=== PATIENT | female | born 2000 | race Caucasian/White ===

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

== ENCOUNTER → 2021-01-18 13:29 | Outpatient (CLI) | payer OTHER, SELFPAY ==
--- NOTE | 2021-01-18 13:36 | US_ITS ---
PROCEDURE: US TRANSVAGINAL CLINICAL INDICATION: POSITIVE PREG TEST,SPOTTING COMPARISON: No exams were available for comparison FINDINGS: UTERUS: 5cm x 4cmx 3cm with a combined endometrial thickness of 9.5mm LEFT OVARY: [id number] with a volume of 28ml. RIGHT OVARY: [id number] with a volume of 17.6ml. The uterus is retroverted. Endometrium is upper normal at 10 mm. No intrauterine gestational sac is apparent. There is bilateral ovarian blood flow with small follicles bilaterally. The ovaries are mildly prominent. No cul-de-sac fluid IMPRESSION: No intrauterine gestational sac apparent. The uterus is retroverted with endometrial thickness upper limits normal. Mildly enlarged ovaries with multiple small follicles Dictated by: Aly Falk MD 01/18/2021 18:07 Aly Falk MD in OV 01/18/2021 18:07
== END ==
PROVIDERS: PCP Family Medicine; Visit Provider Nurse Practitioner Family
DX: Z32.01 Encounter for pregnancy test, result positive (principal); O26.851 Spotting complicating pregnancy, first trimester
CPT/HCPCS: 76830

== ENCOUNTER 2021-09-29 17:08 | Emergency (ER) | payer OTHER, SELFPAY ==
[2021-09-29 17:09] VITALS: BP 141/93; PULSE 91; RESP 19; TEMP 37; O2SAT 96; BMI 44.2
--- NOTE | 2021-09-29 18:08 | HMH.EDUTC ---
[facility] [place] Disposition Clinical Impression: Exposure to COVID-19 virus Disposition: Home, Self-Care Condition on Discharge: Good Instructions: DI for COVID-19 (Suspected or Confirmed ) Additional Instructions: covid swab was sent to lab, call tomorrow for results. self isolate until test results are known to be negative No sign of a bacterial infection. Likely viral. Viruses can take 7-14 days to run their course. Nasal saline and bulb syringe or nose Ilene to remove nasal drainage to help with nasal congestion. Hard to eat, drink, sleep with nasal congestion so important to keep this cleaned out. Monitor temp. Tylenol or Motrin as needed for pain or fever Encourage fluids, water, Gatorade, Powerade, Pedialyte if infant/toddler/child Warm salt water gargles Warm fluids Sore throat lozenges Sleep elevated Humidifier/vaporizer Follow-up immediately for new or worsening symptoms or no noticeable improvement over the next 48-72 hours. Referrals: Abbi Pritchard MD [Primary Care Provider] - Time of Disposition: 18:12 Medical Decision Making - Bret Inquiry Pt receiving controlled substance: No Orders (Tests/Meds): ORDERS Category Date Time Status Covid-19 Nasal PCR ([facility]) Routine Lab 09/29/21 17:40 Received [facility] [place] HPI - General Chief complaint: Urgent [facility] Center Stated complaint: covid test Time Seen by Provider: 09/29/21 18:08 Mode of Arrival: Ambulatory Source of Information: Patient Limitations: No Limitations - History of Present Illness Provider Complaint: 20 yr old female presnets for covid test, pt states cough and chest pain with coughing. positive exposer - Related Data Home Medications Medication Instructions Recorded Confirmed Ergocalciferol (Vitamin D2) 400 unit PO DAILY 11/18/17 11/04/18 [Vitamin D] Folic Acid [Folic Acid 1mg tablet] 1 mg PO DAILY 11/18/17 11/04/18 Ibuprofen [Ibuprofen 600mg Tab] 600 mg PO TID PRN 11/18/17 11/04/18 Loratadine [Allergy Relief] 10 mg PO DAILY 11/18/17 11/04/18 Montelukast Sodium [Montelukast 10 mg PO DAILY 11/18/17 11/04/18 10mg Tab] Omeprazole [Omeprazole 20mg 20 mg PO DAILY 11/18/17 11/04/18 Capsule] levETIRAcetam [Keppra 500mg tablet] 500 mg PO TID 11/18/17 11/04/18 Previous Rx's Medication Instructions Recorded Olopatadine HCl [Pataday] 1 drp OP DAILY #1 bottle 11/18/17 Allergies Allergy/AdvReac Type Severity Reaction Status Date / Time Penicillins [PENICILLINS] Allergy Unknown Verified 11/04/18 16:[address] [facility] History - Hepatitis A Screen Attestation statement:: This patient has been screened for Hepatitis A risk factors. I have reviewed the patient's past medical history: Yes Medical History: Reports:: Gastroesophageal Reflux Disease(GERD) Denies:: Diabetes Mellitus Type 1, Diabetes Mellitus Type 2, Internal Pacemaker Other Surgeries: Yes: No Previous Surgery. No: Pacemaker - Social History Smoking Status: Never smoker Alcohol Intake: never Substance Use Type: denies use Occupational Status: student Housing: house Household Members: family Family Hx:: Diabetes, Cancer ROS Obtained: Yes Systems reviewed as appropriate & no additional complaints - Constitutional Constitutional: Reports system reviewed and no additional complaints, except as docu, Denies chills, Denies fever(s) - Eyes Eyes: Reports system reviewed and no additional complaints, except as docu, Denies blurry vision - ENT Ears, Nose, Mouth, and Throat: Reports system reviewed and no additional complaints, except as docu, Denies sore throat - Cardiovascular Cardiovascular: Reports system reviewed and no additional complaints, except as docu, Denies chest pain - Respiratory Respiratory: Reports system reviewed and no additional complaints, except as docu, Reports cough - Gastrointestinal Gastrointestingal: Reports: system reviewed and no additional complaints, except as docu. Denies: abdominal pain - Musculoskeletal Musculoskeletal: Repor
[2021-09-29 18:29] VITALS: BP 141/93; PULSE 91; RESP 19; TEMP 37; O2SAT 96
== END 2021-09-29 18:32 | disposition home or self-care (01) ==
PROVIDERS: Emergency Provider Nurse Practitioner Family; PCP Family Medicine
DX: U07.1 COVID-19 (principal)
CPT/HCPCS: 99202; C9803; G0463; U0003; U0005

== ENCOUNTER → 2022-12-13 15:19 | Outpatient (CLI) | payer OTHER, SELFPAY ==
[2022-12-13 15:27] LABS: Microscopic, Urine URINE MICROSCOPIC (MICROSCOPIC)
[2022-12-13 16:14] LABS: Appearance,Urine CLEAR (Clear); Bilirubin,Urine Negative (Negative); Blood, Urine Negative (Negative); Color,Urine YELLOW (Yellow); Glucose,Urine (UA) Negative (Negative); Ketones,Urine Negative (Negative); Leukocyte Esterase,Urine 1+ (Negative); Nitrate,Urine Negative (Negative); Protein,Urine Negative (Negative); Specific Gravity, Urine >= 1.030 (1.005-1.030); Urobilinogen,Urine 0.2 EU/dl (0.2)
[2022-12-13 16:58] LABS: Bacteria,Urine Trace /lpf
[2022-12-15 18:24] LABS: HIV Screen 4th Generation wRfx Non Reactive (Non Reactive); Rapid Plasma Reagin Ab Titer Non Reactive (NonRea<1:1)
[2022-12-17 22:13] LABS: Neisseria gonorrhoeae, NAA Negative (Negative)
== END ==
PROVIDERS: PCP Family Medicine; Visit Provider Nurse Practitioner Family
DX: Z20.2 Contact with and (suspected) exposure to infections with a predominantly sexual mode of transmission (principal); Z11.4 Encounter for screening for human immunodeficiency virus [HIV]
CPT/HCPCS: 36415; 81001; 86593; 86703; 87086; 87491; 87591; G0432

== ENCOUNTER → 2023-01-06 12:54 | Outpatient (CLI) | payer OTHER, SELFPAY ==
[2023-01-07 21:08] LABS: Neisseria gonorrhoeae, NAA Negative (Negative)
== END ==
PROVIDERS: PCP Nurse Practitioner Family; Visit Provider Nurse Practitioner Family
DX: Z87.440 Personal history of urinary (tract) infections (principal); B37.31 Acute candidiasis of vulva and vagina; N94.19 Other specified dyspareunia
CPT/HCPCS: 87086; 87491; 87591

== ENCOUNTER 2023-05-05 01:08 | Emergency (ER) | payer OTHER, SELFPAY ==
[2023-05-05 01:23] VITALS: BP 154/95; PULSE 85; RESP 15; TEMP 36.8; O2SAT 98; BMI 36.8
[2023-05-05 01:37] LABS: Chloride 105 mmol/L (98-107); Potassium 4.1 mmoL/L (3.5-5.1); Sodium 139 mmol/L (136-145)
[2023-05-05 01:40] LABS: Alanine Aminotransferase 24 U/L (12-78); Albumin Level 4.6 g/dl (3.5-5.0); Alkaline Phosphatase 102 U/L (38-126); Anion Gap 15.1 mEq/L (5-15); Aspartate Amino Transferase 30 U/L (14-36); Bilirubin,Total 0.4 mg/dl (0.2-1.3); Blood Urea Nitrogen 16 mg/dl (7-17); Carbon Dioxide 23 mmol/L (22.0-30.0); Creatinine Clearance Estimated 184 mL/min (50-200); Estimated Glomerular Filt Rate 89 ml/min (>60); GFR (African American) 108 ML/MIN (>60); Globulin 4.6 g/dL (1.3-3.2); HCG Qualitative, Serum Negative (Negative); Total Protein,Serum 9.2 g/dl (6.3-8.2)
[2023-05-05 01:41] LABS: Basophils # 0.1 K/mm3 (0-0.2); Basophils % 0.6 % (0.1-2.0); Calcium 10.2 mg/dl (8.4-10.2); Eosinophils # 0.2 K/mm3 (0.0-0.4); Eosinophils % 1.6 % (0.1-12.0); Glucose 89 mg/dl (74-100); Hematocrit 43.3 % (37.0-47.0); Lymphocytes # 3.7 K/mm3 (0.7-4.5); Lymphocytes % 28.9 % (10-50); Mean Corpuscular HGB Conc 32.2 g/dL (31.8-35.4); Mean Corpuscular Hemoglobin 26.3 pg (27.0-31.2); Mean Corpuscular Volume 81.6 fl (81-99); Mean Platelet Volume 7.7 fl (7.4-10.4); Monocytes # 0.7 K/mm3 (0.1-1.0); Monocytes % 5.2 % (1.7-9.3); Neutrophils # 8.2 K/mm3 (1.8-7.8); Neutrophils % 63.7 % (37.0-80.0); Platelet Count 386 K/mm3 (142-424); Red Blood Count 5.31 M/mm3 (4.20-5.40); Red Cell Distribution Width 14.8 % (11.5-17.5); White Blood Count 12.9 K/mm3 (4.8-10.8)
--- NOTE | 2023-05-05 02:05 | PC.NURSE ---
Went in to pts room to get BP and O2 sat. Pt keeps taking everything off and won't keep them on. CR
--- NOTE | 2023-05-05 02:24 | HMH.EDGENADL ---
Discharge Plan Disposition Patient Disposition: Home, Self-Care Prescriptions Prescriptions: No Action lisinopril 2.5 mg tablet 2.5 mg PO DAILY metformin 500 mg tablet extended release 24 hr 500 mg PO DAILY Referrals Follow up/Referrals: Jack Rayo MD [Primary Care Provider] - See instructions Activity Restrictions/Add. Instructions Additional Instructions/Restrictions: Please follow-up with your primary care provider. Please return to the emergency department if you develop any new or worsening symptoms or become concerned for your health. Clinical Impressions Clinical Impression: Headache Qualifiers: Headache type: unspecified Headache chronicity pattern: acute headache Intractability: not intractable Qualified Code(s): R51.9 - Headache, unspecified Discharge ED Provider: Con Waters Adult HPI General Chief complaint: Weakness Stated complaint: Numbness over body,COBIAN,weakness,Vomiting Time Seen by Provider: 05/05/23 01:17 Mode of Arrival: Family Vehicle Source of Information: Patient Limitations: No Limitations Description of Symptoms (Recalled from ER Triage Doc. by RN): 22 yo female presents with CC of numbness all over accompanied by nausea. Patient states that the episodes have occurred more than once in the past 48 hours and they are concerned she might be having seizures again . Reported that up until 7 years ago, she had had seizures since she was 2 years old that were treated by jordin and monitored by neuro at [facility]. Patient states they declared her seizure free 7 years ago and she hasn't been on any medications since. Patient states that she is alert and aware during these episodes but 'feels' numb all over. PMH: seizures, hypertension, PCOS. Patient current meds: lisinopril, metformin. All: PCN. LMP 4 weeks ago, due today. Actively trying to conceive, so took a preg test at home and it was negative. Afebrile.Denies any trauma. History of Present Illness HPI narrative: 22-year-old female, reported history of seizure disorder but has been seizure-free for 4 years and has been off her medications for a long time. Also has history of obesity and hypertension. She is here with multiple complaints over the last couple of days. She has had intermittent episodes of nausea and headache with mild bilateral extremity numbness that comes and goes. She is not sure if she is . No reported seizure-like activity. Her typical seizure is generalized in nature. She has family history of migraines and intermittently gets headaches with associated numbness but has never been diagnosed with migraines. Related Data Home Medications Medication Instructions Recorded Confirmed lisinopril 2.5 mg tablet 2.5 mg PO DAILY htn 01/06/23 05/05/23 metformin 500 mg tablet,extended 500 mg PO DAILY pcos 01/06/23 05/05/23 release 24 hr Allergies Allergy/AdvReac Type Severity Reaction Status Date / Time Penicillins [PENICILLINS] Allergy Unknown Verified 01/06/23 10:09 [facility] Disclaimer: The information contained in this section may have been updated after the patient was seen, as this information can be updated by other users. Medical History (Updated 05/05/23 @ 02:24 by Con Waters MD) Allergic conjunctivitis of both eyes Ankle sprain and strain Chlamydia contact, untreated Chlamydia infection Exposure to COVID-19 virus UTI (urinary tract infection) Vitamin D deficiency Family History (Updated 01/06/23 @ 10:15 by Roselia Huang LPN) Mother Diabetes Congenital heart failure Father Diabetes Social History (Updated 01/06/23 @ 10:14 by Roselia Huang LPN) Smoking Status: Unknown if ever smoked alcohol intake: never substance use type: denies use current occupational status: other Travel in the last 8 weeks: None household members: family housing: house ROS Obtained: Yes All systems reviewed
[2023-05-05 02:44] VITALS: BP 0/0; PULSE 0; RESP 0; TEMP -17.7; TEMP 0
== END 2023-05-05 02:47 | disposition home or self-care (01) ==
PROVIDERS: Emergency Provider Emergency Medicine; PCP Family Medicine
DX: R51.9 Headache, unspecified (principal); R53.1 Weakness; R11.10 Vomiting, unspecified; G40.909 Epilepsy, unspecified, not intractable, without status epilepticus; E66.9 Obesity, unspecified; I10 Essential (primary) hypertension
CPT/HCPCS: 80053; 84703; 85025; 96361; 96374; 96375; 99284

== ENCOUNTER 2023-09-03 16:11 | Emergency (ER) | payer OTHER, SELFPAY ==
[2023-09-03 16:20] VITALS: BP 118/77; PULSE 96; RESP 18; TEMP 37.1; O2SAT 99; BMI 31.9
--- NOTE | 2023-09-03 16:43 | ED_ITS ---
Discharge Plan Disposition Patient Disposition: Home, Self-Care Condition: Good Prescriptions Prescriptions: No Action lisinopril 2.5 mg tablet 2.5 mg PO DAILY metformin 500 mg tablet extended release 24 hr 500 mg PO DAILY omeprazole 40 mg Capsule,Delayed Release(Dr/Ec) 40 mg PO DAILY progesterone micronized 200 mg capsule 200 mg PO DAILY Referrals Follow up/Referrals: Jack Rayo MD [Primary Care Provider] - See instructions Activity Restrictions/Add. Instructions Additional Instructions/Restrictions: * Too late to start Tamiflu. Most effective when started within 48 hours of symptoms onset * Lots of rest * Increase Fluids water, Gatorade, powerade, pedialyte,if infant/toddler/child * Alternate Tylenol and / or ibuprofen as discussed for fever, aches, chills Follow up IMMEDIATELY with your family doctor for new or worsening Symptoms OR no noticeable improvement over the next 48-72 hours, 911 for difficulty or breathing * You or your child area contagious until no fever, aches, chills for 24 hours with medication for symptoms * Help Prevent the spread of influenza: * ?Wash your hands often. Use soap and water. Wash your hands after you use the bathroom, change a child's diapers, or sneeze. Wash your hands before you prepare or eat food. Use gel hand cleanser that has 60% alcohol, when soap and water are not available. Do not touch your eyes, nose, or mouth unless you have washed your hands first. * Cover your mouth when you sneeze or cough. Cough into a tissue or the bend of your arm. If you use a tissue, throw it away immediately and wash your hands. * Clean shared items with a germ-killing acid tank cleaner. Clean table surfaces, doorknobs, and light switches. Do not share towels, silverware, and dishes with people who are sick. Wash bed sheets, towels, silverware, and dishes with soap and water. * Wear a mask over your mouth and nose if you are sick. The face mask may help protect others from becoming infected with the flu. Wear the mask when in common areas of your home or if you seek care with a healthcare provider. * Stay away from others if you are sick. Stay at home until 24 hours after your fever and symptoms are gone. Clinical Impressions Clinical Impression: Influenza Instructions Patient Instructions: DI for Influenza -- Adult, Influenza Discharge ED Provider: Mary Guzman [facility] [place] HPI General Stated complaint: fever 101 ba chills nausea congestion Mode of Arrival: Ambulatory Source of Information: Patient Limitations: No Limitations Time Seen by Provider: 09/03/23 16:43 Description of Symptoms (Recalled from Triage Doc. by RN): Pt's symptoms are fever, COBIAN, nasuea, congestion, and runny nose. HEENT Symptoms (Recalled from RN notes): Yes Resp Symptoms (Recalled from RN notes): No Skin Symptoms (Recalled from RN notes): No MS Symptoms (Recalled from RN notes): No Functional Status (Recalled from RN notes): n/a History of Present Illness Provider Complaint: Patient states that she hasnt felt well for the last couple of days States that she has been having fever, chills, body aches, and nasal congestion States that today she was still not feeling well so she came in to get checked not sure if she may have flu or something Related Data Home Medications Medication Instructions Recorded Confirmed lisinopril 2.5 mg tablet 2.5 mg PO DAILY htn 01/06/23 09/03/23 metformin 500 mg tablet,extended 500 mg PO DAILY pcos 01/06/23 09/03/23 release 24 hr omeprazole 40 mg capsule,delayed 40 mg PO DAILY 09/03/23 09/03/23 release progesterone micronized 200 mg 200 mg PO DAILY 09/03/23 09/03/23 capsule Allergies Allergy/AdvReac Type Severity Reaction Status Date / Time Penicillins [PENICILLINS] Allergy Unknown Verified 09/03/23 16:43 Worker's Comp Is this a Worker's Comp case?: No [facility] Disclaimer: The information contained in this section may have been updated after the patient was seen, as this information can be updated by other users. Medical History (Updated 09/03/23 @ 16:49 by Mary Guzman APRN) Allergic conjunctivitis of both eyes Ankle sprain and strain Chlamydia contact, untreated Chlamydia infection Exposure to COVID-19 virus UTI (urinary tract infection) Vitamin D deficiency Family History Mother Diabetes Congenital heart failure Father Diabetes Social History Smoking Status: Unknown if ever smoked alcohol intake: never substance use type: denies use current occupational status: other Travel in the last 8 weeks: None household members: family housing: house ROS Obtained: Yes All systems reviewed & no additional complaints except as documented and Yes Systems reviewed as appropriate & no additional complaints except as documented Constitutional Constitutional: Reports system reviewed and no additional complaints, except as documented, Reports as per HPI, Reports chills and Reports fever(s) ENT Ears, Nose, Mouth, and Throat: Reports system reviewed and no additional complaints, except as documented, Reports as per HPI, Reports nasal congestion and Reports nasal discharge Cardiovascular Cardiovascular: Reports system reviewed and no additional complaints, except as documented and Reports as per HPI Respiratory Respiratory: Reports system reviewed and no additional complaints, except as documented and Reports as per HPI Gastrointestinal Gastrointestingal: Reports system reviewed and no additional complaints, except as documented and as per HPI Physical Exam General General appearance: alert and in no apparent distress ENT ENT exam: Present mucous membranes moist Respiratory Respiratory exam: Present normal lung sounds bilaterally; Absent respiratory distress or wheezes Cardiovascular Cardiovascular exam: Present regular rate, normal rhythm and normal heart sounds Neurological Exam Neurological exam: Present alert, oriented X3 and normal gait Medical Decision Making Bret Inquiry Pt receiving controlled substance: No Bret was queried for this patient: No Vital Signs: 09/03/23 16:20 Temperature 98.8 F Temperature Source Oral Pulse Rate [Right Radial] 96 H Respiratory Rate 18 Blood Pressure [Right Arm] 118/77 Blood Pressure Mean [Right Arm] 90 Blood Pressure Source [Right Arm] Automatic Cuff Blood Pressure Position [Right Arm] Sitting 02 Sat by Pulse Oximetry 99 Oxygen Delivery Method Room Air Lab Data Lab results reviewed: Yes I reviewed the patient's lab results.
[2023-09-03 16:47] LABS: UTC Influenza A Antigen Positive (Negative); UTC Influenza B Antigen Negative (Negative)
[2023-09-03 17:04] VITALS: BP 118/77; PULSE 96; RESP 18; TEMP 37.1; O2SAT 99
== END 2023-09-03 17:04 | disposition home or self-care (01) ==
PROVIDERS: Emergency Provider Nurse Practitioner; PCP Family Medicine
DX: J10.1 Influenza due to other identified influenza virus with other respiratory manifestations (principal); R50.9 Fever, unspecified; R51.9 Headache, unspecified; R11.0 Nausea; R09.81 Nasal congestion; M79.18 Myalgia, other site
CPT/HCPCS: 87804; 99212; 99214; G0463